=== PATIENT | female | born 1985 | race Caucasian/White ===

== ENCOUNTER 2021-08-20 14:23 | Emergency (ER) | payer OTHER ==
[~2021-08-20] VITALS: Ht 172.7 cm; Wt 86.3 kg
[2021-08-20] MEDS ORDERED: NS 1,000 ML IV ONE (14:55)
[2021-08-20] MEDS ORDERED: ONDA-83 (15:12)
[2021-08-20] MEDS ORDERED: TOPI50TA9 (15:12)
[2021-08-20] MEDS ORDERED: CLIN1SOL (15:12)
[2021-08-20] MEDS ORDERED: DIAZ5TAB (15:12)
[2021-08-20] MEDS ORDERED: NAPR-885 (15:12)
[2021-08-20] MEDS ORDERED: DULO1CAP4 (15:12)
[2021-08-20] MEDS ORDERED: HYDR200T3 (15:12)
[2021-08-20] MEDS ORDERED: SUMA25TA3 (15:12)
[2021-08-20] MEDS ORDERED: PANT40TA29 (15:12)
[2021-08-20] MEDS ORDERED: SUCR1TAB56 (15:12)
[2021-08-20] MEDS ORDERED: EPIN0.3I11 (15:12)
[2021-08-20 15:14] LABS: BASO % 0.5 % (0.0-1.0); EOS # 0.1 10^3/uL (0.0-0.5); EOS % 1.2 % (0.0-3.0); HEMATOCRIT 45.9 % (36.0-47.0); HEMOGLOBIN 15.6 g/dl (12.0-15.5); LYMPH # 1.6 10^3/uL (1.5-5.0); LYMPH % 20.1 % (24.0-44.0); MEAN CORPUSCULAR HEMOGLOBIN 28.9 pg (27.0-33.0); MONO # 0.7 10^3/uL (0.0-0.8); MONO % 9.2 % (2.0-8.0); NEUTROPHILS # 5.5 10^3/uL (1.5-8.5); NEUTROPHILS % 68.5 % (36.0-66.0); PLATELET COUNT, AUTOMATED 268 10^3/uL (150-450); WHITE BLOOD COUNT 8.1 10^3/uL (4.0-10.0)
--- NOTE | 2021-08-20 15:23 | REP ---
INDICATION: CHEST PAIN. COMPARISON: None. TECHNIQUE: AP portable seated FINDINGS: Lungs are well inflated and clear. The heart, mediastinal and hilar contours are normal. The aorta and airway are intact. Bony thorax is unremarkable. There is no pneumothorax or free air under the diaphragm. IMPRESSION: Negative AP portable chest. <Electronically signed by Riky Tatum > 08/20/21 [id number]
[2021-08-20 15:26] LABS: INR 0.99; PROTHROMBIN TIME 13.5 SECONDS (12.7-14.5)
[2021-08-20 15:27] LABS: PARTIAL THROMBOPLASTIN TIME 43.4 SECONDS (25.9-37.0)
[2021-08-20 15:42] LABS: HCG, SERUM QUALITATIVE NEGATIVE (NEGATIVE)
[2021-08-20 15:48] LABS: ERYTHROCYTE SEDIMENTATION RATE 5 mm/hr (0-20)
[2021-08-20 15:56] LABS: ALT/SGPT 33 U/L (12-78); BLOOD UREA NITROGEN 6 MG/DL (7-18); CALCIUM LEVEL 9.5 MG/DL (8.5-10.1); CARBON DIOXIDE LEVEL 22 MEQ/L (21-32); CHLORIDE LEVEL 105 MEQ/L (98-107); CPK CREATINE PHOSPHOKINASE 45 U/L (26-192); GLOMERULAR FILTRATION RATE > 60.0 (>60); GLUCOSE, FASTING 71 MG/DL (70-100); POTASSIUM SERUM 3.5 MEQ/L (3.5-5.1); SODIUM LEVEL 138 MEQ/L (136-145)
[2021-08-20 15:57] LABS: ALBUMIN 4.2 GM/DL (3.2-5.2); BILIRUBIN,DIRECT 0.1 MG/DL (0.0-0.2); BILIRUBIN,TOTAL 0.4 MG/DL (0.2-1.0); CK-MB VALUE MASS < 1.0 NG/ML (<3.6); LIPASE 191 U/L (73-393); MB/CK RELATIVE INDEX 2.22 (< OR =4); NT-PRO BNP 28 PG/ML (<125); TOTAL PROTEIN 7.9 GM/DL (6.4-8.2); TROPONIN I < 0.02 NG/ML (< 0.10)
[2021-08-20] MEDS ORDERED: GI COCKTAIL 50ML BTL(HYOSCYAMINE/MAALOX/LIDOCAINE VISCOUS)(1:3:1) PO ONE (16:15)
--- NOTE | 2021-08-20 17:42 | ECGEPIP ---
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
[2021-08-20] MEDS ORDERED: ISOVUE-370 76% 100ML VIAL As Ordered ONE (18:12)
--- NOTE | 2021-08-20 19:34 | REPVR ---
PROCEDURE INFORMATION: Exam: CTA Chest With Contrast Exam date and time: 08/20/2021 6:15 PM Age: 35 years old Clinical indication: Chest pain, possible effusion TECHNIQUE: Imaging protocol: Computed tomographic angiography of the chest with contrast. 3D rendering (Not supervised by radiologist): MIP and/or 3D reconstructed images were created by the technologist. Radiation optimization: All CT scans at this facility use at least one of these dose optimization techniques: automated exposure control; mA and/or kV adjustment per patient size (includes targeted exams where dose is matched to clinical indication); or iterative reconstruction. Contrast material: ISOVUE 370; Contrast volume: 75 ml; Contrast route: INTRAVENOUS (IV); COMPARISON: CR PORTABLE CHEST X-RAY 08/20/2021 2:34 PM FINDINGS: Pulmonary arteries: No pulmonary embolism. Aorta: The thoracic aorta is intact and patent. There is no thoracic aortic aneurysm, pseudoaneurysm, penetrating atherosclerotic ulcer, intramural hematoma, or dissection. There is no acute fracture or dislocation. There is a mild compression deformity of T8. Schmorl's nodes are present at several levels in the thoracic spine. Trachea: Normal. Bronchial tree: Normal. Lungs: There is mild dependent atelectasis in both lower lobes. The lungs are otherwise clear. There is no lung consolidation or mass. No emphysematous changes or interstitial lung disease is noted. Pleural spaces: No pneumothorax. No pleural effusion. Heart: No cardiomegaly or pericardial effusion. The ratio of the diameter of the right ventricle to the diameter of the left ventricle measures less than 1, which is within normal limits and there is no CT evidence for a right ventricular strain. Mediastinal space: No mediastinal mass, fluid collection, or pneumomediastinum. Lymph nodes: No enlarged lymph nodes. Diaphragm: Intact. Liver: The attenuation of the liver is lower compared to the spleen, which can be seen with fatty liver infiltration. The liver was not fully imaged. Gallbladder and bile ducts: There has been a cholecystectomy. There is no fluid collection in the gallbladder fossa. No dilation of the bile ducts is noted. No calcified stones are seen in the common bile duct. Spleen: There are multiple calcified granulomas in the spleen. The spleen was not fully imaged. Adrenal glands: Normal. No adrenal mass is noted. Limited kidneys: There is a 2.1 cm benign-appearing simple cyst in the upper pole of the left kidney, for which imaging follow-up is not necessary. There is bilateral nonobstructive nephrolithiasis. Left renal cortical scarring is present. The kidneys were not fully imaged. Bones/joints: No suspicious osteolytic or osteoblastic lesion is noted. Soft tissues: Unremarkable. No soft tissue fluid collection. IMPRESSION: 1. No acute findings in the chest. No pulmonary embolism or pleural effusion. 2. Bilateral nonobstructive nephrolithiasis. 3. Multiple calcified granulomas in the spleen. Electronically signed by: Vern Zuleta On 08/20/2021 19:33:58 PM
[2021-08-20 20:00] VITALS: BP 144/95
[2021-08-20] MEDS ORDERED: HYDR-3363 PO (21:51)
--- NOTE | 2021-08-21 05:47 | ECGEPIP ---
[facility] - ED Test Date: 2021-08-20 Pat Name: DEIDRE COFFEY Department: Room: - Gender: Female Customer Greeter: COLT : 1985 Requested By: CASSANDRA Summers Order Number: [id number] Reading MD: Bandar Loya Measurements Intervals [place] Rate: 83 P: 63 ND: 148 QRS: 44 QRSD: 84 T: 96 QT: 404 QTc: 474 Interpretive Statements Normal sinus rhythm Nonspecific T wave abnormality Prolonged QT RATE CHANGE COMPARED TO 08/20/21 Electronically Signed on 08-21-2021 5:47:44 EST by Bandar Loya
--- NOTE | 2021-08-21 08:57 | ECHO ---
ECHOCARDIOGRAM DATE OF PROCEDURE: 08/20/2021 Age: 35 Gender: Male Height: 68 inches Weight: 198 pounds REFERRING PHYSICIAN: Matt Jensen M.D. INDICATION: Pericardial effusion. MEASUREMENTS: 2D Measurements: Aortic root 3.3 cm Proximal ascending aorta 3.1 cm Left atrium 2.8 cm Ventricular septum 0.84 cm Posterior wall 0.98 cm Left ventricle diastole 3.8 cm Posterior wall 2.4 cm Inferior vena cava 1.2 cm (more than 50% respiratory variation) Doppler Measurements: No aortic regurgitation Aortic valve velocity 124 cm/s LVOT velocity 117 cm/s No mitral regurgitation Mitral E velocity 95.5 cm/s Mitral A velocity 78.3 cm/s Pulmonary acceleration time 127 msec MITRAL ANNULAR TISSUE DOPPLER E prime septal 7.7 cm/s, E prime lateral 12.5 cm/s DESCRIPTION: Rhythm was sinus. Image quality was fair to good. This was a 2D, M-mode, color flow Doppler, and pulsed wave Doppler examination including mitral annular tissue Doppler. CONCLUSIONS: 1. Tiny pericardial effusion without diastolic chamber collapse and without any significant respiratory variation of intracardiac velocities. No localized pericardial effusion seen. 2. Normal left ventricle internal dimensions and wall thickness. Normal regional LV wall motion and wall thickening. Normal LV systolic function. LVEF 65% to 70% by visual assessment. Normal LV diastolic function. 3. Left pleural effusion. Normal inferior vena cava size and respiratory variation suggestive of normal CVP. Preliminary results of this study were relayed by telephone to Matt Jensen M.D. by Dr. Morillo (telephone call).
== END 2021-08-20 21:05 | disposition home or self-care (01) ==
LOC: M ED 14:23
DX: K21.9 Gastro-esophageal reflux disease without esophagitis (principal); M32.9 Systemic lupus erythematosus, unspecified; Z79.899 Other long term (current) drug therapy
CPT/HCPCS: 71045; 71275; 80048; 80076; 82550; 82553; 83690; 83880; 84145; 84443; 84703; 85025; 85610; 85652; 85730; 86140; 93005; 93041; 93306; 94760; 96360; 96361; 99285; Q9967